=== PATIENT | female | born 1995 | race Hispanic/Latino ===

== ENCOUNTER 2024-11-18 14:13 | Emergency (ER) | payer SELFPAY ==
[~2024-11-18] VITALS: Ht 162.6 cm; Wt 108.9 kg
[2024-11-18 14:25] VITALS: PULSE 83; RESP 16; TEMP 98.2; O2SAT 97
[2024-11-18] MEDS: DIPHTH,PERTUSS(ACELL),TET VAC 0.5 ML SYRINGE IM ONE (14:51)
== END 2024-11-18 15:12 | disposition home or self-care (01) ==
LOC: FSED 14:23
DX: S91.202A Unspecified open wound of left great toe with damage to nail, initial encounter (principal); W22.09XA Striking against other stationary object, initial encounter; Y93.01 Activity, walking, marching and hiking; Y92.89 Other specified places as the place of occurrence of the external cause
CPT/HCPCS: 90471; 96372; 99283